=== PATIENT | male | born 2000 | race Caucasian/White ===

== ENCOUNTER 2022-08-05 08:11 | Outpatient (REF) | payer OTHER, SELFPAY | END 2022-08-05 08:12 | disposition home or self-care (01) | LOC: HO.SH 08:11 | PROVIDERS: Visit Provider Pediatrics | DX: Z01.118 Encounter for examination of ears and hearing with other abnormal findings (principal); H93.293 Other abnormal auditory perceptions, bilateral | CPT/HCPCS: 92557; 92567; 92588 ==